=== PATIENT | male | born 1945 ===

== ENCOUNTER 2021-07-12 07:20 | Outpatient (CLI) | payer MEDICARE, BC ==
[2021-07-12] MEDS ORDERED: Iopamidol 370 76% 100 ML VIAL ONE (14:20)
== END 2021-07-12 07:21 | disposition home or self-care (01) ==
LOC: CT 07:20
PROVIDERS: ATTEND Urology
DX: N13.2 Hydronephrosis with renal and ureteral calculous obstruction (principal)
CPT/HCPCS: 74178; 82565; Q9967